=== PATIENT | male | born 1960 | race Hispanic/Latino ===

== ENCOUNTER 2020-08-20 04:26 | Emergency (ER) | payer SELFPAY ==
[2020-08-20 05:40] LABS: Bilirubin,Urine NEG (Negative); Blood,Urine MOD (Negative); Color,Urine Straw (Yellow); Mucus,Urine FEW /HPF; Protein,Urine <15 mg/dL mg/dL (Negative); Urobilinogen,Urine < 2.0 mg/dL (<2.0); WBC,Urine < 1.0 /HPF (0.0-6.0)
[2020-08-20 05:44] LABS: Amphetamine Screen,Urine PRESUMPTIVE NEGATIVE; Benzodiazepines Screen,Urine PRESUMPTIVE NEGATIVE; Cannabinoid Screen,Urine PRESUMPTIVE NEGATIVE; Cocaine Screen,Urine PRESUMPTIVE NEGATIVE; Methadone Screen,Urine PRESUMPTIVE NEGATIVE; Opiate Screen,Urine PRESUMPTIVE NEGATIVE
[2020-08-20 06:02] LABS: Hematocrit 33.6 % (35.5-45.6); Hemoglobin 11.1 gm/dl (11.8-15.2); Mean Corpuscular HGB Conc 33 % (32-34); Mean Corpuscular Volume 85 fl (84-94); Platelet Count 379 K/mm3 (140-440); Red Blood Count 3.96 M/mm3 (3.65-5.03); Red Cell Distribution Width 16.2 % (13.2-15.2)
[2020-08-20 06:21] LABS: Blood Urea Nitrogen 12 mg/dL (9-20); Calcium 9.8 mg/dL (8.4-10.2); Hemolysis Index 4
[2020-08-20 06:22] LABS: BUN/Creatinine Ratio 24
[2020-08-20] MEDS ORDERED: diphenhydrAMINE 50 MG/ML VIAL IM PRN (08:01)
[2020-08-20] MEDS ORDERED: LORazepam 2 MG/ML VIAL IM PRN (08:01)
[2020-08-20] MEDS ORDERED: HALOPERIDOL LACTATE 5 MG/1 ML INJ IM PRN (08:01)
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
[2020-08-21 08:04] VITALS: BP 101/69
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
[2020-08-21] MEDS ORDERED: HALOPERIDOL 2 MG TAB PO SCH (11:00)
== END 2020-08-21 15:30 ==
LOC: ED 04:26 → EEVIPCON 04:26 → ED 08-21 15:30
DX: F29 Unspecified psychosis not due to a substance or known physiological condition (principal); R45.851 Suicidal ideations; F25.0 Schizoaffective disorder, bipolar type; Z98.890 Other specified postprocedural states; Z79.899 Other long term (current) drug therapy
CPT/HCPCS: 36415; 70450; 80048; 80307; 81001; 85027; 96372; 99285; J1200; J1630; J2060; 80320; G0480